=== PATIENT | female | born 2000 | race Two or more races ===

== ENCOUNTER → 2025-08-15 | Outpatient (CLI) | payer BC, MEDICAID, SELFPAY ==
--- NOTE | 2025-08-15 10:00 | XR_ITS ---
Examination: Abdomen sonogram, complete Date and time of exam: August 15, 2025, 0959 hours INDICATIONS: Epigastric pain and nausea beginning 2 weeks ago.. Technique: Multiple real-time grayscale transabdominal sonographic images of the abdomen have been obtained. Findings: Normal gallbladder. Normal common bile duct 0.3 cm Pancreatic head 2.8 cm Aorta not enlarged. Liver 14.8 cm fatty infiltration no focal liver lesions Normal hepatopetal portal venous flow Patent IVC Right kidney 11.3 cm renal cortex 1.9 cm Left kidney 12.6 cm renal cortex 2.2 cm Mild renal scar formation Spleen 10.7 cm IMPRESSION: Normal gallbladder Fatty liver Mild bilateral renal scar formation
== END | disposition home or self-care (01) ==
PROVIDERS: PCP Student in an Organized Health Care Education/Training Program; Referring Provider Student in an Organized Health Care Education/Training Program; Visit Provider Student in an Organized Health Care Education/Training Program
DX: K76.0 Fatty (change of) liver, not elsewhere classified (principal); N28.89 Other specified disorders of kidney and ureter
CPT/HCPCS: 76700

== ENCOUNTER 2025-09-30 12:45 | Day surgery (SDC) | payer BC, MEDICAID, SELFPAY ==
[2025-09-27 16:36] LABS: HCG Qualitative,Urine Negative
[2025-09-30] VITALS (9 sets, daily range): BP systolic 117–139; BP diastolic 69–94; PULSE 48–104; RESP 16–28; TEMP 36.9; O2SAT 96–100; BMI 33.6
[2025-09-30] MEDS: SODIUM CHLORIDE 0.9% 500 ML 500 ML 20 ML IV (14:30)
[2025-09-30] MEDS: BENZOCAINE 20% (Hurricaine) SPRAY 1 DOSE TOP (14:36)
[2025-09-30] MEDS: MIDAZOLAM INJ 1 MG/ML VIAL 2 ML (ASD USE ONLY) 2 MG IVP (14:41)
[2025-09-30] MEDS: fentaNYL CIT INJ 50 mCg/ML AMP 2ML (ASD USE ONLY) IVP (14:41)
== END 2025-09-30 15:25 | disposition home or self-care (01) ==
PROVIDERS: PCP Family Medicine; Referring Provider Specialist; Visit Provider Specialist
PROC: (CPT 43239; principal; 2025-09-30 13:45)
DX: K20.90 Esophagitis, unspecified without bleeding (principal); K31.89 Other diseases of stomach and duodenum; K29.50 Unspecified chronic gastritis without bleeding
CPT/HCPCS: 43239; 81025; J1200; J2250; J3010; J7999; A9270

== ENCOUNTER → 2025-10-03 | Outpatient (CLI) | payer BC, MEDICAID, SELFPAY ==
--- NOTE | 2025-10-03 09:56 | XR_ITS ---
Examination: Abdomen AP single view Technique: AP portable supine abdomen, single view Exam date and time: October 03, 2025, 1043 hours INDICATIONS: Abdominal pain beginning 2 months ago. FINDINGS: Moderate stool throughout the colon No obstruction No free air IMPRESSION: Nonobstructive bowel gas pattern
== END | disposition home or self-care (01) ==
PROVIDERS: PCP Family Medicine; Referring Provider Specialist; Visit Provider Specialist
DX: R10.13 Epigastric pain (principal); R11.0 Nausea; R14.0 Abdominal distension (gaseous)
CPT/HCPCS: 74018